=== PATIENT | female | born 1945 | race Caucasian/White ===

== ENCOUNTER → 2023-05-16 15:09 | Outpatient (CLI) | payer MEDICARE, OTHER, SELFPAY ==
--- NOTE | ~2023-05-16 | CT_ITS ---
EXAMINATION: CT lung screening DATE: 05/16/2023 15:33 INDICATION: History of nicotine dependence TECHNIQUE: Computed tomography (CT) of the chest was performed without intravenous contrast. The dose -length product was 126.98 mGy-cm. Automated exposure control and iterative reconstruction technique were employed. COMPARISON: CT dated 04/28/2019 FINDINGS: Heart size normal. Large hiatal hernia. No significant pleural or pericardial effusion. No thoracic lymphadenopathy. There is emphysema. No endobronchial lesions. There are stable 4 mm lower l obe nodules bilaterally. There is a 2 mm right upper lobe nodule. No pneumothorax. Moderate thoracic spondylosis. IMPRESSION: 1. Lung-RADS category 2: Benign appearance or behavior. Continue annual screening with noncontrast lo w-dose chest CT in 12 months. Reviewed, dictated and finalized at location [facility]. IMPRESSION: 1. Lung-RADS category 2: Benign appearance or behavior. Continue annual screeni ng with noncontrast low-dose chest CT in 12 months.
== END ==
PROVIDERS: PCP Physician Assistant; Visit Provider Physician Assistant
DX: Z12.2 Encounter for screening for malignant neoplasm of respiratory organs (principal); Z87.891 Personal history of nicotine dependence
CPT/HCPCS: 71271

== ENCOUNTER 2024-08-20 14:44 | Outpatient (CLI) | payer MEDICARE, OTHER, SELFPAY ==
--- NOTE | ~2024-08-20 | CT_ITS ---
EXAMINATION: CT lung screening DATE: 08/20/2024 14:58 INDICATION: Personal hx of nicotine dependence TECHNIQUE: Computed tomography (CT) of the chest was performed without intravenous contrast. Addition al 3D reconstructions utilizing coronal maximum intensity projection (MIP) were performed. Automated exposure control and iterative reconstruction technique were employed. The dose-length product was 10 8.58 mGy-cm. COMPARISON: 05/16/2023 FINDINGS: Mild emphysema. No interval change in a few scattered small pulmonary nodules the 2 largest measuring 4.5 mm in the bilateral lower lobes. This includes a tiny calcified nodule in the intersegment right upper lobe consistent with old granulomatous disease. No new or enlarging pulmonary nodule is identi fied. No pneumonia, pulmonary edema or pleural effusion. Heart size is normal. No pericardial effusio n. Thoracic aorta is normal in caliber. Moderate-sized sliding-type hiatal hernia. No pathologically enlarged thoracic lymphadenopathy. Visualized upper abdomen is unremarkable. Moderate thoracic spondy losis. IMPRESSION: 1. Lung-RADS category 2: Benign appearance or behavior. Continue annual screening with noncontrast lo w-dose chest CT in 12 months. Reviewed, dictated and finalized at location A. [facility] [employer] IMPRESSION: 1. Lung-RADS category 2: Benign appearance or behavior. Continue annual screeni ng with noncontrast low-dose chest CT in 12 months.
== END 2024-08-20 14:45 | disposition home or self-care (01) ==
LOC: MICIMG 14:46
PROVIDERS: PCP Physician Assistant; Visit Provider Physician Assistant
DX: Z12.2 Encounter for screening for malignant neoplasm of respiratory organs (principal); Z87.891 Personal history of nicotine dependence
CPT/HCPCS: 71271